=== PATIENT | male | born 1980 | race Caucasian/White ===

== ENCOUNTER → 2018-03-01 | Outpatient (CLI) | payer BC ==
--- NOTE | 2018-03-01 14:57 | XR ---
Lumbar spine HISTORY: Chronic low back pain 5 views of the lumbosacral spine Lumbar vertebral bodies show preserved height, alignment, and bone mineralization. No evident spondyl olysis. Loss of disc height present at L5-S1 and to lesser extent L4-5 with associated spondylosis. V acuum phenomenon suspected at L5-S1. IMPRESSION: Degenerative disc disease. Consider lumbar MRI.
== END | disposition home or self-care (01) ==
LOC: RADXRYALE 14:21
PROVIDERS: ATTEND Physician Assistant Medical
DX: M51.36 Other intervertebral disc degeneration, lumbar region (principal)
CPT/HCPCS: 72110